=== PATIENT | male | born 1965 | race Caucasian/White ===

== ENCOUNTER 2017-11-27 17:09 | Emergency (ER) | payer SELFPAY ==
[~2017-11-27] VITALS: Ht 177.8 cm; Wt 95.2 kg
[2017-11-27 17:17] VITALS: BP 123/74; Ht 177.8 cm; Wt 95.2 kg
== END 2017-11-27 18:30 | disposition home or self-care (01) ==
LOC: ED 17:09
DX: S61.012A Laceration without foreign body of left thumb without damage to nail, initial encounter (principal); X58.XXXA Exposure to other specified factors, initial encounter; Y93.89 Activity, other specified; Y99.8 Other external cause status; Y92.89 Other specified places as the place of occurrence of the external cause
CPT/HCPCS: J2001

== ENCOUNTER 2017-12-01 12:47 | Emergency (ER) | payer SELFPAY ==
[~2017-12-01] VITALS: Ht 170.2 cm; Wt 97.5 kg
[2017-12-01 12:52] VITALS: BP 138/83; Ht 170.2 cm; Wt 97.5 kg
== END 2017-12-01 13:31 | disposition home or self-care (01) ==
LOC: ED 12:47
DX: S61.012D Laceration without foreign body of left thumb without damage to nail, subsequent encounter (principal); X58.XXXD Exposure to other specified factors, subsequent encounter

== ENCOUNTER 2017-12-08 18:50 | Emergency (ER) | payer SELFPAY ==
[~2017-12-08] VITALS: Ht 170.2 cm; Wt 96.6 kg
[2017-12-08 19:01] VITALS: Ht 170.2 cm; Wt 96.6 kg
[2017-12-08 19:40] VITALS: BP 123/82
== END 2017-12-08 19:40 | disposition home or self-care (01) ==
LOC: ED 18:50
DX: S61.012D Laceration without foreign body of left thumb without damage to nail, subsequent encounter (principal); X58.XXXD Exposure to other specified factors, subsequent encounter